=== PATIENT | female | born 1980 | race African-American/Black ===

== ENCOUNTER 2018-09-30 19:13 | Emergency (ER) | payer MEDICARE ==
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
[2018-09-30] MEDS ORDERED: Acetaminophen/HYDROcodone 325-5 MG Tab PO ONE (19:53)
--- NOTE | 2018-09-30 20:55 | CT ---
INDICATION: chronic back pain, worse past couple days, hx of bulging disc CT LUMBAR SPINE WITHOUT CONTRAST TECHNIQUE: Multidetector axial CT imaging was performed through the lumbar spine, without contrast. Sagittal and coronal reconstructions were generated. FINDINGS: Mild lumbarization of S1, a normal variant. No acute fractures are identified. No destructive osseous lesions. Disc spaces appear preserved. Osseous alignment is within normal limits and no subluxation is seen. Advanced DJD changes of the L5-S1 facet joints bilaterally are present. Paravertebral soft tissues are unremarkable. There is a 2.5 centimeter dominant follicle or small cyst in the left ovary. IMPRESSION: 1. No fracture, subluxation, or other acute finding identified. 2. Advanced DJD involving the L5-S1 facet joints bilaterally. MIKE STEINBERG MD [employer] Dictated by Will Steinberg MD @ 09/30/2018 8:52:07 PM Dictated by: Will Steinberg MD @ 09/30/2018 20:52:33 (Electronically Signed)
== END 2018-09-30 21:33 | disposition home or self-care (01) ==
LOC: MW.ED 19:13
DX: M54.41 Lumbago with sciatica, right side (principal); M54.42 Lumbago with sciatica, left side; Z76.0 Encounter for issue of repeat prescription; Z88.0 Allergy status to penicillin; Z88.6 Allergy status to analgesic agent; Z88.8 Allergy status to other drugs, medicaments and biological substances
CPT/HCPCS: 72131; 99283; A9270

== ENCOUNTER 2018-10-03 07:06 | Emergency (ER) | payer MEDICARE ==
[2018-10-03] MEDS ORDERED: Acetaminophen/HYDROcodone 325-10 MG Tab PO ONE (07:53)
--- NOTE | 2018-10-03 08:23 | EDM.PDOC ---
<Boris Lyles - Last Filed: 10/03/18 08:18> ED HPI GENERAL MEDICAL PROBLEM - General Chief Complaint: Back Pain or Injury Stated Complaint: BACK PAIN, HERNIATED AND BULGING DISCS Time Seen by Provider: 10/03/18 07:30 - History of Present Illness INITIAL COMMENTS - FREE TEXT/NARRATIVE: 38 y/o female with history of chronic back pain who was recently seen in the ER on 09/30/[address] showed severe lumbar degenerative disease. No acute fractures. She was prescribed Moriarty 5 mg PO Q4-6 hours, taking 1-2 tabs as needed for pain. She states she still has pain. States she over exerted herself moving boxes this weekend. Denies any bowel incontinence. No urinary retention or saddle anesthesia. I went through the [facility] and it shows that patient filled medications on . I informed her about this and told her that she should still have 6 tabs left. Patient denies this. lower back Pain Score (Numeric/FACES): 9 - Related Data Allergies Allergy/AdvReac Type Severity Reaction Status Date / Time famotidine [From Duexis] Allergy Anaphylactic Verified 10/03/18 07:23 Shock ibuprofen [From Duexis] Allergy Anaphylactic Verified 10/03/18 07:23 Shock Penicillins Allergy Hives Verified 10/03/18 07:23 Home Meds: Home Meds Hydrocodone/Acetaminophen [Hydrocodon-Acetaminophn 10-325] 1 tab PO Q8HR [History] Hydrocodone/Acetaminophen [Moriarty 10-325 Tablet] 1 each PO Q6H PRN #4 tablet 05/23 [Rx] Past Medical History HEENT History: Reports: Impaired Vision, Other (See Below) Other HEENT History: wears glasses Cardiovascular History: Reports: None Respiratory History: Reports: None Gastrointestinal History: Reports: None Genitourinary History: Reports: None CONTROL TECHNICIAN History: Reports: None Musculoskeletal History: Reports: Osteoarthritis, Other (See Below) Other Musculoskeletal History: herniated disk L2-L5 Neurological History: Reports: None Psychiatric History: Reports: None Endocrine/Metabolic History: Reports: None Hematologic History: Reports: None Immunologic History: Reports: None Oncologic (Cancer) History: Reports: None Dermatologic History: Reports: None - Infectious Disease History Infectious Disease History: 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 - Past Surgical History Head Surgeries/Procedures: Reports: None HEENT Surgical History: Reports: None Cardiovascular Surgical History: Reports: None Respiratory Surgical History: Reports: None GI Surgical History: Reports: None Female Surgical History: Reports: None Endocrine Surgical History: Reports: None Neurological Surgical History: Reports: None Musculoskeletal Surgical History: Reports: Other (See Below) Other Musculoskeletal Surgeries/Procedures:: right foot sx Oncologic Surgical History: Reports: None Dermatological Surgical History: Reports: None Social & Family History - Family History Family Medical History: Noncontributory - Tobacco Use Smoking Status *Q: Never Smoker Second Hand Smoke Exposure: No - Caffeine Use Caffeine Use: Reports: Soda - Recreational Drug Use Recreational Drug Use: No ED ROS GENERAL - Review of Systems Review Of Systems: ROS reveals no pertinent complaints other than HPI. ED EXAM,LOWER BACK PAIN/INJURY - Physical Exam Exam: See Below Respiratory/Chest: No Respiratory Distress, Lungs Clear Cardiovascular: Regular Rate, Rhythm, No Edema GI/Abdominal: Normal Bowel Sounds, Soft, Non-Tender Back Exam: Other (lumbar vertebrae tenderness with paraspinal tenderness.) Neurological: Alert, Oriented x 3 Course - Vital Signs Last Recorded V/S: Last Vital Signs Temp 36.1 C 10/03/18 07:20 Pulse 73 10/03/18 07:20 Resp 18 10/03/18 07:20 BP 127/61 10/03/18 07:20 Pulse Ox 97 10/03/18 07:20 - Orders/Labs/Meds Meds: Medications Discontinued Medications Generic Name Dose Route Start Last Admin Trade Name Lawanda PRN Reason Stop Dose Admin Hydrocodone Bitart/Acetaminophen 1 tab 10/03/18 07:53 10/03/18 08:14 Moriarty 325-10 Mg PO 10/03/18 07:54 1 tab ONETIME ONE Administration Departure - Departure Time of Disposition: 08:24 Disposition: Home, Self-Care 01 Clinical Impression: Chronic back pain Qualifiers: Back pain location: low back pain Back pain laterality: bilateral Sciatica presence: with sciatica Sciatica laterality: sciatica laterality unspecified Qualified Code(s): M54.40 - Lumbago with sciatica, unspecified side; G89.29 - Other chronic pain - Discharge Information *PRESCRIPTION DRUG MONITORING PROGRAM REVIEWED*: Yes *COPY OF PRESCRIPTION DRUG MONITORING REPORT IN PATIENT ZOHRA: No Prescriptions: Hydrocodone/Acetaminophen [Moriarty 10-325 Tablet] 1 each PO Q6H PRN #4 tablet PRN Reason: Pain Referrals: PCP,None [Primary Care Provider] - Forms: ED Department Discharge Additional Instructions: The following information is given to patients seen in the emergency department who are being discharged to home. This information is to outline your options for follow-up care. We provide all patients seen in our emergency department with a follow-up referral. The need for follow-up, as well as the timing and circumstances, are variable depending upon the specifics of your emergency department visit. If you don't have a primary care physician on staff, we will provide you with a referral. We always advise you to contact your personal physician following an emergency department visit to inform them of the circumstance of the visit and for follow-up with them and/or the need for any referrals to a consulting specialist. The emergency department will also refer you to a specialist when appropriate. This referral assures that you have the opportunity for followup care with a specialist. All of these measure are taken in an effort to provide you with optimal care, which includes your followup. Under all circumstances we always encourage you to contact your private physician who remains a resource for coordinating your care. When calling for followup care, please make the office aware that this follow-up is from your recent emergency room visit. If for any reason you are refused follow-up, please contact the [facility] emergency department at and ask to speak to the emergency department charge nurse. [facility] Primary care- [place] [address] Follow-up with your scheduled clinic appointment tomorrow morning. Take pain medications and return to ER as needed and as discussed <Yolanda Zambrano - Last Filed: 10/03/18 08:34> ED HPI GENERAL MEDICAL PROBLEM - History of Present Illness INITIAL COMMENTS - FREE TEXT/NARRATIVE: This is Dr. Zambrano dictating an addendum note as I'm the supervising physician on this case. I've involved in the care of this patient and agree with history and physical as above. The CT scan of several days ago was reviewed and as the patient is not having any bowel or bladder disturbances and the pain is her chronic pain we will proceed to give her a few tablets more of her pain medication to get her to her appointment which she has tomorrow with her PCP in our clinic. ED ROS GENERAL - Review of Systems Review Of Systems: ROS reveals no pertinent complaints other than HPI. ED EXAM,LOWER BACK PAIN/INJURY - Physical Exam Exam: See Below (See dictation) Departure - Departure Condition: Good
== END 2018-10-03 08:53 | disposition home or self-care (01) ==
LOC: MW.ED 07:06
DX: M54.40 Lumbago with sciatica, unspecified side (principal); Z88.0 Allergy status to penicillin; Z88.6 Allergy status to analgesic agent; Z88.8 Allergy status to other drugs, medicaments and biological substances
CPT/HCPCS: 99283; A9270